=== PATIENT | female | born 1930 | race American Indian/Alaskan Native ===

== ENCOUNTER 2019-04-20 10:18 | Outpatient (CLI) | payer MEDICARE | END 2019-04-20 10:19 | disposition home or self-care (01) | LOC: WOUND 10:18 | PROVIDERS: ATTEND Surgery | DX: I87.311 Chronic venous hypertension (idiopathic) with ulcer of right lower extremity (principal); L97.822 Non-pressure chronic ulcer of other part of left lower leg with fat layer exposed; H54.62 Unqualified visual loss, left eye, normal vision right eye; I13.0 Hypertensive heart and chronic kidney disease with heart failure and stage 1 through stage 4 chronic kidney disease, or unspecified chronic kidney disease; N18.4 Chronic kidney disease, stage 4 (severe); I50.9 Heart failure, unspecified; I70.0 Atherosclerosis of aorta; I73.9 Peripheral vascular disease, unspecified; I27.20 Pulmonary hypertension, unspecified; R41.3 Other amnesia; E05.90 Thyrotoxicosis, unspecified without thyrotoxic crisis or storm | CPT/HCPCS: 11042; 11045; G0463; 99205 ==

== ENCOUNTER 2019-04-26 09:42 | Outpatient (CLI) | payer MEDICARE ==
--- NOTE | 2019-04-26 13:33 | Vascular Lab Report ---
DUPLEX DOPPLER LOWER EXTREMITY VEINS, RIGHT INDICATION: CHRONIC VENOUS INSUFF./HTN. TECHNIQUE: Duplex doppler imaging was performed through the veins of the right lower extremity using venous comp ression and other maneuvers. COMPARISON: No relevant prior imaging study available. FINDINGS: Right Common femoral vein: Negative. Right Superficial femoral vein: Negative. Right Popliteal vein: Negative. Right Calf veins: Negative. Additional findings: There was some evidence of venous reflux beginning in the external iliac femoral vein, extending into the common femoral and proximal superficial femoral veins as well as the great saphenous vein during Valsalva. The great saphenous vein measured 8 mm at the origin, 8 mm in the pro ximal thigh, and 5 mm in the mid thigh. IMPRESSION: 1. No sonographic evidence for DVT in the right lower extremity. 2. Evidence of reflux beginning in the external iliac vein and extending into the common femoral, pro ximal superficial femoral, and great saphenous veins. GSV measurements as above. Signer Name: Luis Pereira MD Signed: 04/26/2019 1:28 PM Workstation Name: [id number]
--- NOTE | 2019-04-26 13:52 | Vascular Lab Report ---
DUPLEX DOPPLER LOWER EXTREMITY ARTERIAL, right INDICATION: atherosclerosis. TECHNIQUE: Arterial duplex examination of the right lower extremity performed using B-mode, color flow and spect ral Doppler assessment. FINDINGS: RIGHT: Common Femoral Artery: PSV 113 cm/sec. Triphasic waveform. Proximal SFA: PSV 100 cm/sec. Triphasic waveform. Mid SFA: PSV 93 cm/sec. Triphasic waveform. Distal SFA: PSV 94 cm/sec. Monophasic waveform. Popliteal artery: PSV 97 cm/sec. Monophasic waveform. Posterior tibial artery: PSV 48 cm/sec. Monophasic waveform. Dorsalis Pedis Artery: PSV 24 cm/sec. Monophasic waveform. IMPRESSION: 1. Abnormal monophasic waveforms beginning in the distal SFA and extending into the DPA consistent wi th upstream stenoses and moderate overall disease. Ankle-Brachial Index (YAZAN): * Calcified arteries > 1.4 * Normal = 0.9-1.4 * Mild PAD = 0.7-0.89 * Moderate PAD = 0.51-0.69 * Severe PAD < 0.5 Doppler Waveform: * Triphasic is normal. * Biphasic is abnormal if clear transition from triphasic signal along vascular tree. * Monophasic is abnormal. Signer Name: Luis Pereira MD Signed: 04/26/2019 1:47 PM Workstation Name: [id number]
== END 2019-04-26 09:43 | disposition home or self-care (01) ==
LOC: VAS 09:42
PROVIDERS: ATTEND Surgery
DX: I87.311 Chronic venous hypertension (idiopathic) with ulcer of right lower extremity (principal); I70.201 Unspecified atherosclerosis of native arteries of extremities, right leg

== ENCOUNTER 2019-04-27 09:40 | Outpatient (CLI) | payer MEDICARE ==
[2019-04-27] MEDS ORDERED: LIDOCAINE (4%) 40 MG/ML TOPICAL SOLN 50 ML BOTTLE TP ONE (10:30)
== END 2019-04-27 09:41 | disposition home or self-care (01) ==
LOC: WOUND 09:40
PROVIDERS: ATTEND Surgery
DX: I87.311 Chronic venous hypertension (idiopathic) with ulcer of right lower extremity (principal); L97.822 Non-pressure chronic ulcer of other part of left lower leg with fat layer exposed; H54.62 Unqualified visual loss, left eye, normal vision right eye; I13.0 Hypertensive heart and chronic kidney disease with heart failure and stage 1 through stage 4 chronic kidney disease, or unspecified chronic kidney disease; N18.4 Chronic kidney disease, stage 4 (severe); I50.9 Heart failure, unspecified; I70.0 Atherosclerosis of aorta; I73.9 Peripheral vascular disease, unspecified; I27.20 Pulmonary hypertension, unspecified; R41.3 Other amnesia; E05.90 Thyrotoxicosis, unspecified without thyrotoxic crisis or storm

== ENCOUNTER 2019-05-04 10:21 | Outpatient (CLI) | payer MEDICARE ==
[2019-05-04] MEDS ORDERED: LIDOCAINE (4%) 40 MG/ML TOPICAL SOLN 50 ML BOTTLE TP ONE (11:00)
== END 2019-05-04 10:22 | disposition home or self-care (01) ==
LOC: WOUND 10:21
PROVIDERS: ATTEND Surgery
DX: I87.311 Chronic venous hypertension (idiopathic) with ulcer of right lower extremity (principal); L97.822 Non-pressure chronic ulcer of other part of left lower leg with fat layer exposed; H54.62 Unqualified visual loss, left eye, normal vision right eye; I13.0 Hypertensive heart and chronic kidney disease with heart failure and stage 1 through stage 4 chronic kidney disease, or unspecified chronic kidney disease; N18.4 Chronic kidney disease, stage 4 (severe); I50.9 Heart failure, unspecified; I70.0 Atherosclerosis of aorta; I73.9 Peripheral vascular disease, unspecified; J43.9 Emphysema, unspecified; R41.3 Other amnesia; E05.90 Thyrotoxicosis, unspecified without thyrotoxic crisis or storm

== ENCOUNTER 2019-05-11 10:29 | Outpatient (CLI) | payer MEDICARE ==
[2019-05-11] MEDS ORDERED: LIDOCAINE (4%) 40 MG/ML TOPICAL SOLN 50 ML BOTTLE TP ONE (11:00)
== END 2019-05-11 10:30 | disposition home or self-care (01) ==
LOC: WOUND 10:29
PROVIDERS: ATTEND Surgery
DX: I87.311 Chronic venous hypertension (idiopathic) with ulcer of right lower extremity (principal); L97.822 Non-pressure chronic ulcer of other part of left lower leg with fat layer exposed; H54.62 Unqualified visual loss, left eye, normal vision right eye; I13.0 Hypertensive heart and chronic kidney disease with heart failure and stage 1 through stage 4 chronic kidney disease, or unspecified chronic kidney disease; N18.4 Chronic kidney disease, stage 4 (severe); I50.9 Heart failure, unspecified; I70.0 Atherosclerosis of aorta; I73.9 Peripheral vascular disease, unspecified; I27.20 Pulmonary hypertension, unspecified; R41.3 Other amnesia; E05.90 Thyrotoxicosis, unspecified without thyrotoxic crisis or storm

== ENCOUNTER 2019-05-18 10:27 | Outpatient (CLI) | payer MEDICARE ==
[2019-05-18] MEDS ORDERED: LIDOCAINE (4%) 40 MG/ML TOPICAL SOLN 50 ML BOTTLE TP ONE (10:28)
== END 2019-05-18 10:28 | disposition home or self-care (01) ==
LOC: WOUND 10:27
PROVIDERS: ATTEND Surgery
DX: I87.311 Chronic venous hypertension (idiopathic) with ulcer of right lower extremity (principal); L97.822 Non-pressure chronic ulcer of other part of left lower leg with fat layer exposed; H54.62 Unqualified visual loss, left eye, normal vision right eye; I13.0 Hypertensive heart and chronic kidney disease with heart failure and stage 1 through stage 4 chronic kidney disease, or unspecified chronic kidney disease; N18.4 Chronic kidney disease, stage 4 (severe); I50.9 Heart failure, unspecified; I70.0 Atherosclerosis of aorta; I27.20 Pulmonary hypertension, unspecified; R41.3 Other amnesia; E05.90 Thyrotoxicosis, unspecified without thyrotoxic crisis or storm
CPT/HCPCS: 99214; G0463